=== PATIENT | male | born 1950 | race Caucasian/White ===

== ENCOUNTER 2017-06-19 08:56 | Emergency (ER) | payer OTHER ==
[~2017-06-19] VITALS: Ht 193 cm; Wt 99.8 kg
[~2017-06-19 08:56] MED LIST: BUPR100T14 PO; CITA10TA70 PO; DIVA500T59 PO; LEVO50TA7 PO; LOSA100T27 PO; SIMV-13 PO; TIZA4CAP5 PO
[2017-06-19 09:06] VITALS: BP 110/61
== END 2017-06-19 10:23 | disposition home or self-care (01) ==
LOC: ER 08:56
DX: N39.0 Urinary tract infection, site not specified (principal); Z46.6 Encounter for fitting and adjustment of urinary device; E78.5 Hyperlipidemia, unspecified; I10 Essential (primary) hypertension; E07.9 Disorder of thyroid, unspecified

== ENCOUNTER 2017-08-23 08:08 | Day surgery (SDC) | payer OTHER ==
[2017-08-19 15:16] LABS: Basophils # (auto) 0.1 uL; Basophils % (auto) 0.6 % (0.0-2.0); Eosinophils # (auto) 0.2 uL; Eosinophils % (auto) 1.7 % (0.0-7.0); Hematocrit 43.6 % (41.0-53.0); Hemoglobin 14.7 g/dL (13.5-17.5); Lymphocytes # (auto) 5.4 uL; Lymphocytes % (auto) 43.3 % (10.0-50.0); Mean Corpuscular Hgb Conc. 33.8 g/dL (32.0-36.0); Mean Corpuscular Volume 91.8 fL (80.0-100.0); Mean Platelet Volume 7.9 fL (6.9-10.8); Monocytes # (auto) 0.7 uL; Monocytes % (auto) 5.8 % (0.0-12.0); Neutrophils # (auto) 6.1 uL; Neutrophils % (auto) 48.6 % (37.0-80.0); Nucleated Red Blood Cells % 1.8 %; Platelet Count (auto) 210 10^3/uL (140-450); Red Cell Distribution Width 13.8 % (11.8-14.3); White Blood Cell 12.5 10^3/uL (4.4-10.8)
[2017-08-19 15:30] LABS: INR 0.99 (0.9-1.15); Partial Thromboplastin Time 25.9 sec (22.64-33.71); Prothrombin Time 10.8 sec (9.37-12.3)
[2017-08-19 15:33] LABS: Urine Bilirubin Negative (Negative); Urine Blood Negative /uL (Negative); Urine Color Yellow (Yellow); Urine Glucose 1+ mg/dL (Normal); Urine Ketone Negative (Negative); Urine Nitrite POSITIVE (Negative); Urine RBC 9 /hpf (0 - 3); Urine Urobilinogen Normal (Negative); Urine WBC Clumps PRESENT /hpf (None Seen)
[2017-08-19 15:40] LABS: Albumin 3.4 g/dL (3.4-5.0); Bilirubin, Total 0.3 mg/dL (0.2-1.0); Potassium 4.5 mmol/L (3.5-5.1); Total Protein 6.9 g/dL (6.4-8.2)
[~2017-08-23] VITALS: Ht 193 cm; Wt 99.8 kg
[~2017-08-23 08:08] MED LIST changes: +ASPI81TA27 PO; -CITA10TA70 PO; -DIVA500T59 PO; +FLUO-125 PO; +INSUINJ48 SC; -LOSA100T27 PO; +METO-169 PO; +PIO30T PO; +TELM80TA PO; -TIZA4CAP5 PO
[2017-08-23] MEDS ORDERED: ceFAZolin 1GM/50ML D5W 0 ML IV ONE (08:37)
[2017-08-23] MEDS ORDERED: ceFAZolin 1GM/50ML D5W 50 ML IV ONE (09:24)
[2017-08-23] MEDS ORDERED: CIPROFLOXACIN 400MG/200ML 200 ML IV ONE (09:25)
[2017-08-23] MEDS ORDERED: LIDOCAINE 2% JELLY 11ml (GLYDO) ONE (09:31)
[2017-08-23] MEDS ORDERED: MIDAZOLAM HCL 1MG/1ML-2 ML VIAL ONE (09:40)
[2017-08-23] MEDS ORDERED: fentaNYL CITRATE 100 MCG/2 ML VL ONE (09:40)
[2017-08-23] MEDS ORDERED: DEXAMETHASONE SOD PHOS 10MG/1ML VIAL INJ ONE (09:50)
[2017-08-23] MEDS ORDERED: PROPOFOL 10 MG/ML 20 ML IV ONE (09:55)
[2017-08-23] MEDS ORDERED: KETOROLAC TROMETH 30 MG/ML 1ML VIAL ONE (10:06)
[2017-08-23] MEDS ORDERED: KETOROLAC TROMETH 30 MG/ML 1ML VIAL IV ONE (10:15)
[2017-08-23] MEDS ORDERED: MIDAZOLAM HCL 1MG/1ML-2 ML VIAL IV PRN (10:15)
[2017-08-23] MEDS ORDERED: ONDANSETRON HCL 4 MG/2 ML VIAL IV ONE (10:15)
[2017-08-23] MEDS ORDERED: ePHEDrine SULFATE 50 MG/ML AMP IV PRN (10:15)
[2017-08-23] MEDS ORDERED: MORPHINE SULF INJ 2 MG/ML SYRINGE 1ML IV PRN (10:15)
[2017-08-23] MEDS ORDERED: LABETALOL HCL 5 MG/ML 4ML SYRINGE IV PRN (10:15)
[2017-08-23] MEDS ORDERED: HYDROmorphone HCL 2 MG/ML VL IV PRN (10:15)
[2017-08-23 11:04] VITALS: BP 136/71
== END 2017-08-23 11:15 | disposition home or self-care (01) ==
LOC: SUR 08:08
PROVIDERS: ATTEND Urology
DX: N32.9 Bladder disorder, unspecified (principal); E11.22 Type 2 diabetes mellitus with diabetic chronic kidney disease; I12.9 Hypertensive chronic kidney disease with stage 1 through stage 4 chronic kidney disease, or unspecified chronic kidney disease; N18.3 Chronic kidney disease, stage 3 (moderate); E03.9 Hypothyroidism, unspecified; I49.9 Cardiac arrhythmia, unspecified; I25.10 Atherosclerotic heart disease of native coronary artery without angina pectoris; I48.91 Unspecified atrial fibrillation; F32.9 Major depressive disorder, single episode, unspecified; G62.9 Polyneuropathy, unspecified; F10.99 Alcohol use, unspecified with unspecified alcohol-induced disorder
CPT/HCPCS: 36415; 52224; 80053; 81001; 82962; 85025; 85610; 85730; 87086; 87088; 87186; 88305; J0690; J0744; J1100; J1885; J2250; J2704; J3010; J7030

== ENCOUNTER 2020-07-30 01:28 | Inpatient (IN) | payer OTHER ==
[~2020-07-30] VITALS: Ht 193 cm; Wt 103.1 kg
[~2020-07-30 01:28] MED LIST changes: +ASPI-543 PO; -ASPI81TA27 PO
[2020-07-30 02:23] LABS: Basophils # (auto) 0.1 10 ^3/uL (0-0.2); Basophils % (auto) 0.4 % (0.0-2.0); Eosinophils # (auto) 0.1 10 ^3/uL (0-0.8); Eosinophils % (auto) 0.6 % (0.0-7.0); Hematocrit 40.4 % (41.0-53.0); Hemoglobin 13.3 g/dL (13.5-17.5); Lymphocytes # (auto) 4.4 10 ^3/uL (0.4-5.4); Lymphocytes % (auto) 31.3 % (10.0-50.0); Mean Corpuscular Hemoglobin 30.3 pg (28.0-32.0); Mean Corpuscular Volume 91.8 fL (80.0-100.0); Monocytes % (auto) 6.8 % (0.0-12.0); Neutrophils # (auto) 8.6 10 ^3/uL (1.6-8.6); Neutrophils % (auto) 60.9 % (37.0-80.0); Nucleated Red Blood Cells % 0.1 %; Platelet Count (auto) 260 10^3/uL (140-450); Red Cell Distribution Width 13.9 % (11.8-14.3); White Blood Cell 14.2 10^3/uL (4.4-10.8)
[2020-07-30 02:40] LABS: Albumin 3.4 g/dL (3.4-5.0); BUN/Creatinine Ratio 8.2; Calcium 9.2 mg/dL (8.5-10.1); Magnesium 1.9 mg/dL (1.6-2.6); Potassium 4.2 mmol/L (3.5-5.1)
[2020-07-30 02:45] LABS: Bilirubin, Total 0.6 mg/dL (0.2-1.0); Total Protein 7.4 g/dL (6.4-8.2)
[2020-07-30 02:46] LABS: INR 1.05 (0.9-1.15); Partial Thromboplastin Time 22.7 sec (23.0-31.2)
[2020-07-30] MEDS ORDERED: levoFLOXacin 750MG 150 ML IV ONE (03:45)
[2020-07-30] MEDS ORDERED: FUROSEMIDE 20 MG/2 ML VIAL IV ONE (03:45)
[2020-07-30 06:27] LABS: Urine Bacteria MANY /hpf (None Seen); Urine Blood 2+ /uL (Negative); Urine Hyaline Cast FEW /lpf (0 - 2); Urine Mucus FEW (None Seen); Urine WBC 248 /hpf (0 - 3); Urine WBC Clumps PRESENT /hpf (None Seen)
[2020-07-30] MEDS ORDERED: ACETAMINOPHEN 325 MG TAB PO PRN (06:45)
[2020-07-30] MEDS ORDERED: TEMAZEPAM 15 MG CAP PO PRN (06:45)
[2020-07-30] MEDS ORDERED: NITROGLYCERIN 0.4 MG SL TAB SL PRN (06:45)
[2020-07-30] MEDS ORDERED: ONDANSETRON HCL 4 MG/2 ML VIAL IV PRN (06:45)
[2020-07-30] MEDS ORDERED: DEXTROSE (50%) 50ML SYRG IV PRN (06:45)
[2020-07-30] MEDS ORDERED: MORPHINE SULF INJ 2 MG/ML SYRINGE 1ML IV PRN (06:45)
[2020-07-30] MEDS ORDERED: cloNIDine HCL 0.1 MG TAB PO PRN (06:45)
[2020-07-30] MEDS: LEVOTHYROXINE SODIUM 25 MCG TAB PO SCH (07:00)
[2020-07-30] MEDS: InsuLIN REG 1unit/0.01ml Soln (100units/ml) SC SCH ×4 (07:00→22:00)
[2020-07-30] MEDS: ACCU-CHEK COMFORT CURVE STRIP VI SCH ×4 (07:00→22:35)
[2020-07-30] MEDS ORDERED: BUPR300T28 PO (08:19)
[2020-07-30] MEDS ORDERED: LEVO88TA4 PO (08:19)
[2020-07-30] MEDS ORDERED: AMIO200T33 PO (08:19)
[2020-07-30] MEDS ORDERED: DULO1CAP6 PO (08:20)
[2020-07-30] MEDS ORDERED: DIVA1TAB39 PO (08:21)
[2020-07-30] MEDS ORDERED: INSU300I SC (08:23)
[2020-07-30] MEDS ORDERED: FLU01T PO (08:24)
--- NOTE | 2020-07-30 09:00 | NUR ---
Telemetry admit from [facility] admitted to Telemetry unit after SBAR received. Patient oriented to RHIANNA RUIZ RN primary RN, unit, room, bed, and unit policies regarding patient care and visiting hours. Patient now on continuous telemetry monitoring, tele box # 1 and telemetry reading on arrival to unit is SR WITH PVC. Patient placed on bedside oxygen, weighed by bedscale and encouraged to call if they need something. All questions and concerns addressed, patient verbalized understanding.
[2020-07-30 09:29] VITALS: BP 147/75
[2020-07-30] MEDS: ASPirin 81 mg TAB PO SCH (10:29)
[2020-07-30] MEDS: FLUoxetine HCL 20 MG CAP PO SCH (10:29)
[2020-07-30] MEDS: levoFLOXacin 250MG 50 ML IV SCH (10:29)
[2020-07-30] MEDS: METOPROLOL SUCCINATE XL 50 MG TAB PO SCH (10:30)
[2020-07-30] MEDS: PANTOPRAZOLE 40 MG TAB PO SCH (10:30)
--- NOTE | 2020-07-30 10:49 | NUR ---
VALUABLES POCKET KNIFE TAKEN FROM PATIENT AND PLACED IN VALUABLES BAG AND PUT IN FRONT OF CHART. UNABLE TO BRING TO SECURITY DUE TO COVID-19 RULE OUT STATUS.
[2020-07-30 11:30] LABS: Creatinine, Urine 46 mg/dL (30.0-125.0); Protein, Urine 104.9 mg/dL (0.0-11.9); Sodium Urine 126 mmol/L (40-220)
[2020-07-30 11:54] VITALS: BP 147/78
--- NOTE | 2020-07-30 12:32 | NUR ---
CALL PLACED TO MICRO RE: PENDING [facility] INHOUSE RESULTS. ACCORDING TO KB THE SWAB WAS NOT RAN WITH AM. THEY WILL NEED TO RUN THE SAMPLE WITH 1400 TESTS
--- NOTE | 2020-07-30 13:10 | NUR ---
PT REFUSING DEL RIO CATHETER AT THIS TIME PT STATES HE WOULD RATHER USE A URINAL BECAUSE HE CURRENTLY JOY NO ISSUES WITH RETENTION AND IS ABLE TO AMBULATE TO THE RESTROOM INDEPENDENTLY
[2020-07-30 17:00] VITALS: BP 150/85
--- NOTE | 2020-07-30 17:15 | NUR ---
RECEIVED REPORT FROM ABIGAIL MOCTEZUMA.
--- NOTE | 2020-07-30 17:15 | NUR ---
REPORT CALLED TO JAMES HAYES
--- NOTE | 2020-07-30 17:35 | NUR ---
PT TRANSFERRED TO NEW ROOM 217A WITH ABIGAIL RAMIREZ PT ACCOMPANIED BY STAFF. NO DISTRESS NOTED AT TIME OF DEPARTURE
[2020-07-30] MEDS: FUROSEMIDE 40 MG/4 ML VIAL IV SCH (18:20)
--- NOTE | 2020-07-30 18:37 | NUR ---
TELE BOX #1 SENT BACK TO MONITOR TECHS. THEY ADVISED THEY WOULD SEND A NEW ONE UPON RECEIVING THIS ONE.
--- NOTE | 2020-07-30 19:24 | NUR ---
Opening Shift Note Assumed care of patient, awake and alert x 4. No S/S of distress/SOB. Bed is in lowest position and locked. Call light within reach. Board updated. Instructed on POC and to call for assist PRN, will continue to monitor for changes Q1hr and PRN.
--- NOTE | 2020-07-30 19:34 | NUR ---
Patient placed on Tele box number 43 and rhythm is 1st degree AV block. Will continue to assess.
[2020-07-30] MEDS: ATORVASTATIN 20 MG TAB PO SCH (22:35)
[2020-07-30 22:37] VITALS: BP 132/71
[2020-07-31 05:30] VITALS: BP 150/87
[2020-07-31] MEDS: InsuLIN REG 1unit/0.01ml Soln (100units/ml) SC SCH ×4 (05:53→22:42)
[2020-07-31] MEDS: ACCU-CHEK COMFORT CURVE STRIP VI SCH ×4 (05:54→22:34)
--- NOTE | 2020-07-31 06:04 | NUR ---
IV insertion IV access obtained, via clean technique by inserting a 20 gauge catheter into a vein in the left hand after 1 attempts. IV secured properly. No trauma to site. Patient tolerated well.
[2020-07-31] MEDS: FUROSEMIDE 40 MG/4 ML VIAL IV SCH ×2 (06:50→17:23)
[2020-07-31] MEDS: LEVOTHYROXINE SODIUM 25 MCG TAB PO SCH (06:50)
[2020-07-31 07:16] LABS: Basophils # (auto) 0.1 10 ^3/uL (0-0.2); Basophils % (auto) 0.7 % (0.0-2.0); Eosinophils # (auto) 0.2 10 ^3/uL (0-0.8); Eosinophils % (auto) 2.1 % (0.0-7.0); Hematocrit 39.9 % (41.0-53.0); Hemoglobin 13.1 g/dL (13.5-17.5); Lymphocytes # (auto) 3.1 10 ^3/uL (0.4-5.4); Lymphocytes % (auto) 31.4 % (10.0-50.0); Mean Corpuscular Hemoglobin 29.7 pg (28.0-32.0); Mean Corpuscular Hgb Conc. 32.8 g/dL (32.0-36.0); Mean Corpuscular Volume 90.5 fL (80.0-100.0); Monocytes # (auto) 0.9 10 ^3/uL (0-1.3); Monocytes % (auto) 8.7 % (0.0-12.0); Neutrophils # (auto) 5.6 10 ^3/uL (1.6-8.6); Neutrophils % (auto) 57.1 % (37.0-80.0); Nucleated Red Blood Cells % 0.1 %; Platelet Count (auto) 239 10^3/uL (140-450); Red Blood Cells 4.41 10^6/uL (4.5-5.90); Red Cell Distribution Width 13.6 % (11.8-14.3); White Blood Cell 9.8 10^3/uL (4.4-10.8)
[2020-07-31 07:38] LABS: Albumin 3.2 g/dL (3.4-5.0); Calcium 9.5 mg/dL (8.5-10.1); Potassium 3.9 mmol/L (3.5-5.1)
[2020-07-31 07:43] LABS: BUN/Creatinine Ratio 11.2; Bilirubin, Total 0.6 mg/dL (0.2-1.0); Total Protein 6.9 g/dL (6.4-8.2)
[2020-07-31 08:00] VITALS: BP 158/89
--- NOTE | 2020-07-31 08:00 | NUR ---
Opening Shift Note Assumed care of patient, awake and alert. No S/S of distress/SOB or pain. Instructed on POC and to call for assist PRN, will continue to monitor for changes Q1hr and PRN.
[2020-07-31] MEDS ORDERED: ADENOSINE 88 MG in GIVE UN-DILUTED 0 ML IV STA (08:12)
--- NOTE | 2020-07-31 11:00 | NUR ---
Stress Test done, waiting for results.
[2020-07-31] MEDS: METOPROLOL SUCCINATE XL 50 MG TAB PO SCH (11:19)
[2020-07-31] MEDS: ASPirin 81 mg TAB PO SCH (11:19)
[2020-07-31] MEDS: FLUoxetine HCL 20 MG CAP PO SCH (11:19)
[2020-07-31] MEDS: PANTOPRAZOLE 40 MG TAB PO SCH (11:19)
[2020-07-31] MEDS: levoFLOXacin 250MG 50 ML IV SCH (11:20)
[2020-07-31 12:00] VITALS: BP 152/88
[2020-07-31 16:59] VITALS: BP 145/83
--- NOTE | 2020-07-31 18:35 | NUR ---
Orders for discharge received from Dr. Isidro once cleared by Dr. Moreno. Awaiting stress test results.
[2020-07-31] MEDS: ATORVASTATIN 20 MG TAB PO SCH (22:34)
[2020-07-31 23:00] VITALS: BP 138/80
[2020-08-01 05:23] VITALS: BP 120/69
[2020-08-01] MEDS: InsuLIN REG 1unit/0.01ml Soln (100units/ml) SC SCH ×2 (06:19→12:25)
[2020-08-01] MEDS: ACCU-CHEK COMFORT CURVE STRIP VI SCH ×2 (06:19→11:57)
[2020-08-01] MEDS: FUROSEMIDE 40 MG/4 ML VIAL IV SCH (06:19)
[2020-08-01] MEDS: LEVOTHYROXINE SODIUM 25 MCG TAB PO SCH (06:19)
[2020-08-01 08:30] VITALS: BP 110/56
[2020-08-01 09:00] VITALS: BP 110/56
[2020-08-01] MEDS: ASPirin 81 mg TAB PO SCH (09:05)
[2020-08-01] MEDS: PANTOPRAZOLE 40 MG TAB PO SCH (09:05)
[2020-08-01] MEDS: FLUoxetine HCL 20 MG CAP PO SCH (09:05)
[2020-08-01] MEDS: levoFLOXacin 250MG 50 ML IV SCH (09:05)
--- NOTE | 2020-08-01 09:05 | NUR ---
Scheduled po and IV abx medications given per order. Patient resting comfortably in bed with no complaint of pain at this time. Patient stable.
[2020-08-01] MEDS: METOPROLOL SUCCINATE XL 50 MG TAB PO SCH (09:06)
[2020-08-01 11:25] VITALS: BP 110/56
--- NOTE | 2020-08-01 11:57 | NUR ---
Checked blood sugar: 168 mg/dl - will cover per sliding scale. Patient stable.
--- NOTE | 2020-08-01 12:26 | NUR ---
Patient resting comfortably in bed with no distress noted. Covered per sliding scale. Patient stable.
[2020-08-01 13:00] VITALS: BP 182/89
--- NOTE | 2020-08-01 15:15 | NUR ---
Discharge instructions Both written and verbal discharge instructions given to patient. Patient verbalized understanding of instructions. Written prescription for lasix given as well. All belongings with patient. Patient stable.
--- NOTE | 2020-08-01 15:45 | NUR ---
Discharge Peripheral IV removed intact with no active bleeding; site covered with gauze. Patient discharged to home in stable condition.
== END 2020-08-01 15:45 | disposition home or self-care (01) | DRG 291 ==
LOC: ER 01:29 → TELE 01:30 → TELE-EAST 09:00 → TELE-CENTR 17:36
PROVIDERS: ADMIT Nurse Practitioner; ATTEND Internal Medicine
DX: I13.0 Hypertensive heart and chronic kidney disease with heart failure and stage 1 through stage 4 chronic kidney disease, or unspecified chronic kidney disease (principal); N17.0 Acute kidney failure with tubular necrosis; I50.43 Acute on chronic combined systolic (congestive) and diastolic (congestive) heart failure; J98.11 Atelectasis; N18.4 Chronic kidney disease, stage 4 (severe); N13.6 Pyonephrosis; D72.829 Elevated white blood cell count, unspecified; E03.9 Hypothyroidism, unspecified; E11.22 Type 2 diabetes mellitus with diabetic chronic kidney disease; E78.5 Hyperlipidemia, unspecified; G40.909 Epilepsy, unspecified, not intractable, without status epilepticus; Z20.828 Contact with and (suspected) exposure to other viral communicable diseases; R07.89 Other chest pain; R31.9 Hematuria, unspecified; R80.9 Proteinuria, unspecified; F32.9 Major depressive disorder, single episode, unspecified; Z86.19 Personal history of other infectious and parasitic diseases
CPT/HCPCS: 36415; 71045; 76775; 78452; 80053; 81001; 82570; 82728; 82962; 83036; 83735; 83880; 84156; 84300; 84484; 85025; 85379; 85610; 85730; 87040; 87086; 87426; 93005; 93017; 93306; G0378; J0153; J1815; J1956